=== PATIENT | female | born 1985 | race Caucasian/White ===

== ENCOUNTER → 2016-08-02 | Outpatient (CLI) | payer OTHER ==
[~2016-08-02] MED LIST: ASPI-390 PO; CALC500C70 PO; GADAVIST IV PRN; IUD'IUD; KETO10TA PO; MULT-506 PO; ONDA4TAB46 PO; TRAZ50TA35 PO
--- NOTE | 2016-08-02 09:06 | DIAGNOSTIC IMAGING REPORT ---
MRI OF THE BRAIN COMBO CLINICAL HISTORY: Headache. COMPARISON STUDY: No priors. TECHNIQUE: MRI of the brain was performed utilizing various T1 and T2-weighted sequences in the axial, sagittal, and coronal planes. Contrast-enhanced sequences were acquired following the administration of 5.5 cc of Gadavist. FINDINGS: Brain parenchyma: There is diffuse nonspecific pachymeningeal enhancement identified. No left or meningeal enhancement is seen. There is no hemorrhage or mass effect. There is no restricted diffusion to suggest acute ischemia. No enhancing mass lesion is identified on the postcontrast images. Hua-white matter differentiation is preserved. No extra-axial fluid collection is seen. There is cerebellar tonsillar ectopia. The cerebellar tonsils project 9 mm below the foramen magnum. Ventricles, sulci, and cisterns: Normal in configuration. Pituitary and sella: There is nonspecific prominence of the pituitary gland, likely normal for age and gender. Intracranial vasculature: Normal flow voids are maintained at the skull base. Orbits: The bony orbits are grossly intact. Orbital contents are normal in appearance. Sinuses and mastoids: There is trace mucosal thickening in the right maxillary antrum. A 1.7 cm T1 and T2 hyperintense nonenhancing lobulated structure in the left sphenoid sinus is typical for a mucocele. The remaining paranasal sinuses and the mastoid air cells are clear. Calvarium: Unremarkable. Cervical cord: Partially visualized cervical spinal cord is normal in morphology and signal intensity. IMPRESSION: 1. There is no hemorrhage, mass effect, or evidence of acute ischemia. 2. There is diffuse nonspecific pachymeningeal enhancement. This carries a broad differential, with top considerations including intracranial hypotension or infection. Less likely considerations include metastatic disease or neurosarcoidosis. Intracranial hypotension is favored due to the concurrent findings of cerebellar tonsillar ectopia and mild pituitary gland enlargement. Clinical correlation will be essential. Electronically signed by: Sagar Molina M.D. 08/02/2016 9:04 AM Dictated Date/Time: 08/02/2016 8:50 AM
== END | disposition home or self-care (01) ==
LOC: C.MRI 07:36
PROVIDERS: ATTEND Family Medicine
DX: R51 Headache (principal)

== ENCOUNTER → 2016-08-08 | Outpatient (CLI) | payer OTHER ==
--- NOTE | 2016-08-08 20:18 | DIAGNOSTIC IMAGING REPORT ---
MRI CERVICAL SPINE COMBO CLINICAL HISTORY: Postural headache. Possible intracranial hypotension. TECHNIQUE: Sagittal and axial T1, T2 and STIR images were obtained. Imaging was performed before and after administration of 5.1 cc of intravenous Gadavist. COMPARISON STUDY: No previous studies for comparison. There are low-lying cerebellar tonsils There are no suspicious areas of marrow replacement. No intrinsic cervical cord lesions are visualized. C2-3: There is no evidence of disc bulge or focal herniation. There is no spinal or foraminal stenosis. C3-4: There is no evidence of disc bulge or focal herniation. There is no spinal or foraminal stenosis. C4-5: There are no disc bulges or focal herniations. There is no spinal or foraminal stenosis. C5-6 :There is a tiny right paracentral disc protrusion. There is no spinal or foraminal stenosis. C6-7: There is no evidence of disc bulge or focal herniation. There is no evidence of spinal or foraminal stenosis. C7-T1: There is no evidence of disc bulge or focal herniation. There is no evidence of spinal or foraminal stenosis. There is equivocal mild dilatation of the left C8 nerve root sleeve. There is no pathologic enhancement. IMPRESSION: 1. Tiny right paracentral disc protrusion at the C5-6 level 2. Equivocal mild dilatation of the left C8 nerve root sleeve 3. Low-lying cerebellar tonsils Electronically signed by: Lemuel King M.D. 08/08/2016 8:16 PM Dictated Date/Time: 08/08/2016 8:06 PM
--- NOTE | 2016-08-08 20:27 | DIAGNOSTIC IMAGING REPORT ---
THORACIC SPINE COMBO CLINICAL HISTORY: POSTURAL SMITH, ABNORMAL BRAIN MRI possible intracranial hypotension. Evaluate for CSF leak. COMPARISON STUDY: No previous studies for comparison. FINDINGS: Imaging was performed in the sagittal axial and coronal planes. Imaging was performed before and after administration of 5.1 cc of intravenous Gadavist. No spinal cord abnormalities are visualized. There are no suspicious areas of marrow replacement. No disc herniations are visualized. There is no evidence of spinal stenosis. No pseudomeningoceles are visualized. There are no pathologically enhancing lesions. The spleen is top normal in size. IMPRESSION: Normal study Electronically signed by: Lemuel King M.D. 08/08/2016 8:25 PM Dictated Date/Time: 08/08/2016 8:23 PM
--- NOTE | 2016-08-08 20:31 | DIAGNOSTIC IMAGING REPORT ---
MRI LUMBAR SPINE COMBINATION CLINICAL HISTORY: POSTURAL SMITH, ABNORMAL BRAIN MRI POSSIBLE CSF LEAK. INTRACRANIAL HYPOTENSION. TECHNIQUE: Sagittal and axial T1, T2 and STIR images were obtained. Imaging was performed before and after administration of 5.1 cc of intravenous Gadavist. COMPARISON STUDY: No previous studies for comparison. OBSERVATIONS: The vertebral bodies and posterior elements appear intact. There is no abnormal bony signal present to suggest a marrow replacement process. L1-2: No disc protrusions or extrusions. No evidence of spinal canal or neural foraminal compromise. L2-3: No disc protrusions or extrusions. No evidence of spinal canal or neural foraminal compromise. L3-4: No disc protrusions or extrusions. No evidence of spinal canal or neural foraminal compromise. L4-5: No disc protrusions or extrusions. No evidence of spinal canal or neural foraminal compromise. L5-S1: No disc protrusions or extrusions. No evidence of spinal canal or neural foraminal compromise. The conus medullaris and cauda equina appear normal. No pseudomeningoceles are visualized. There are no pathologically enhancing lesions IMPRESSION: Normal study. Electronically signed by: Lemuel King M.D. 08/08/2016 8:29 PM Dictated Date/Time: 08/08/2016 8:25 PM
== END | disposition home or self-care (01) ==
LOC: C.MRI 17:27
PROVIDERS: ATTEND Family Medicine
DX: M50.20 Other cervical disc displacement, unspecified cervical region (principal); R51 Headache; R90.89 Other abnormal findings on diagnostic imaging of central nervous system

== ENCOUNTER → 2016-09-04 | Outpatient (CLI) | payer OTHER ==
[~2016-09-04] MED LIST changes: -GADAVIST IV PRN
== END | disposition home or self-care (01) ==
LOC: C.LAB 07:30
PROVIDERS: ATTEND Psychiatry & Neurology Neurology
DX: G93.89 Other specified disorders of brain (principal)

== ENCOUNTER 2016-11-13 13:17 | Emergency (ER) | payer OTHER ==
[~2016-11-13] VITALS: Ht 160 cm; Wt 52.3 kg
[~2016-11-13 13:17] MED LIST changes: -KETO10TA PO
[2016-11-13 13:20] VITALS: TEMP 36.6; Ht 160 cm; Wt 52.3 kg
[2016-11-13] MEDS ORDERED: SODIUM CHLORIDE 0.9% 1000ML 1,000 ML IV STA (14:05)
[2016-11-13] MEDS ORDERED: KETOROLAC TROMETHAMINE 30 MG/ML VIAL IV STA (14:05)
[2016-11-13 14:29] LABS: BASO % 0.6 %; BASO ABS # 0.05 K/uL (0-0.2); COMPLETE YES; EOS % 1.1 %; HEMATOCRIT 41.2 % (37-47); IG% 0.1 %; MEAN CELL VOLUME 90.7 fL (80-100); MEAN CORPUSCULAR HEMOGLOBIN 31.3 pg (25-34); MEAN CORPUSCULAR HGB CONC 34.5 g/dl (32-36); MEAN PLATELET VOLUME 10.2 fL (7.4-10.4); MONO % 5.5 %; NEUT % 64.7 %; PLATELET COUNT 250 K/uL (130-400); RED BLOOD COUNT 4.54 M/uL (4.2-5.4); WHITE BLOOD COUNT 7.86 K/uL (4.8-10.8)
[2016-11-13 14:42] LABS: PARTIAL THROMBOPLASTIN RATIO 1.1; PROTHROMBIN TIME (PATIENT) 10.6 SECONDS (9.0-12.0)
[2016-11-13 14:53] LABS: PREG INTERNAL POSITIVE QC POS CONTROL LINE
[2016-11-13 14:54] LABS: PREG INTERNAL NEGATIVE QC NEG CLEAR BACKGROUND
[2016-11-13 14:55] LABS: BUN/CREATININE RATIO 9.7 (10-20); CALCIUM 9.4 mg/dl (8.5-10.1); CREATININE 0.93 mg/dl (0.60-1.20); POTASSIUM 3.6 mmol/L (3.5-5.1)
[2016-11-13 14:58] LABS: ALB/GLOB RATIO 1.2 (0.9-2)
[2016-11-13 15:00] VITALS: BP 130/75; PULSE 62; O2SAT 98
--- NOTE | 2016-11-13 15:47 | DIAGNOSTIC IMAGING REPORT ---
HEAD WITHOUT CONTRAST (CT) HISTORY: T10 BLOOD PATCH, INCREASED HEADACHES. Diffuse pachymeningeal enhancement was seen on comparison study. TECHNIQUE: Multiple axial CT images of the head were obtained without contrast. CT DOSE: 537.48 mGy.cm COMPARISON: Brain MRI 08/02/2016. FINDINGS: No acute intracranial hemorrhage, midline shift, mass, large territorial ischemia or abnormal extra-axial collection. Note is made of partially imaged cerebellar tonsillar ectopia. The calvarium is intact. There is a 1.8 x 1.0 cm ovoid low attenuating lesion along the left sphenoid sinus which may reflect an accessory opacified sphenoid air cell. No associated aggressive features are identified. This appears unchanged from comparison. IMPRESSION: No acute intracranial abnormality. 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 The above report was generated using voice recognition software. It may contain grammatical, syntax or spelling errors. Electronically signed by: Arthur Goncalves M.D. 11/13/2016 3:46 PM Dictated Date/Time: 11/13/2016 3:43 PM
[2016-11-13] MEDS ORDERED: KETO10TA PO (16:04)
--- NOTE | 2016-11-13 16:04 | EMERGENCY ROOM VISIT NOTE ---
ED Visit Note First contact with patient: 13:46 CHIEF COMPLAINT: Headache 2 days after blood patch HISTORY OF PRESENT ILLNESS: Patient is a healthy 31-year-old white female who presents to emergency department accompanied by her significant other for evaluation of a headache 2 days after a blood patch. Patient was in her usual state of health until May of this year when she had the fairly abrupt onset of positional headaches. She was evaluated by neurology and pain management, and thoroughly evaluated with multiple diagnostic imaging studies including CTs and MRIs. MRI demonstrated intracranial hypotension. She was referred to pain management for a blood patch and had her first blood patch in September of this year performed by pain management in [place]. It helped her for roughly 2 weeks. Her symptoms subsequently returned. She was then referred to neurosurgery in [place]. She recently had a CT myelogram which localized the leak to the T10 area. She subsequently underwent a second blood patch performed 2 days ago, performed by pain management in [place]. Since the second blood patch, the patient has begun to experience a different headache phenomenon. She feels an intense, throbbing, frontal and temporal pressure with associated nausea and anorexia. She has been checking her temperature and has not had a fever. She has not had any signs of meningitis. She states that her typical headaches were more occipital in nature and were positional. She has tried ibuprofen, Excedrin, Tylenol, increasing her fluid in caffeine intake, ice and cool compresses on position changes. She has Zofran at home which she took prior to arrival. She did contact pain management who performed the above patch and they recommended that she come to the emergency department for a CAT scan to evaluate for an intracranial bleed. They apparently used an increased volume of blood for the blood patch this time. She admits to photophobia, and feeling a little bit off balance. She rates her discomfort a 7/10. REVIEW OF SYSTEMS: Review of systems as per HPI. All other systems reviewed were negative. 10 systems reviewed. PMH: Electronic medical records are reviewed and summarized as above/below. See Problem List. SOCIAL HISTORY: Patient lives at home with her boyfriend. Nonsmoker, denies alcohol use. She is employed as a nurse at our facility. PHYSICAL EXAM: Vital Signs: Reviewed Nurse's notes. CONSTITUTIONAL: Patient is a pleasant, well-appearing 31-year-old white female who is awake and alert and in no acute distress. HEENT: Normocephalic, atraumatic. Pupils equal, round, reactive to light and accommodation. EOMs intact without nystagmus. Sclera are anicteric. Tympanic membranes intact, with normal landmarks. External canals are clear. Oral and nasopharynx are clear. No CSF rhinorrhea. Mucous membranes are moist. NECK: Supple, nontender, no lymphadenopathy. Full range of motion. HEART: Regular rate and rhythm, with normal S1 and S2, no murmur or gallop or rub is heard. LUNGS: Breath sounds equal and clear to auscultation without wheezes, rales, or rhonchi heard. SKIN: No lesions or rash, normal skin turgor. EXTREMITIES: No cyanosis, edema, joint tenderness or swelling. No deformity. NEUROLOGICAL: Alert and oriented x4. Cranial nerves 2 through 12, sensation and strength grossly intact. Gait is normal. Patient is able to tandem walk without difficulty. Negative Romberg, and pronator drift. Finger to nose within normal limits. Mini-Mental status exam is unremarkable. EMERGENCY DEPARTMENT COURSE: The patient was seen and assessed as above. Old records are reviewed. She was referred to the emergency department for evaluation and for a CT scan after having a recent blood patch. Treatment options were discussed with her. She requested Toradol. She was agreeable to IV fluids. She was given a liter over one hour and Toradol 30 mg IV. Blood work was performed. Head CT was obtained. Laboratory studies were largely unremarkable. There was no leukocytosis. H&H is normal. Coags are unremarkable. Electrolytes and liver functions are within normal limits. Urine dip was clear, and test was negative. Head CT did not demonstrate any acute intracranial abnormality. The patient was reassessed after CAT scan. She did report good relief of her headache with the IV fluids and Toradol. All laboratory and diagnostic imaging studies were reviewed with her at length. She reports that pain management told her if her CAT scan was negative, she would have to "wait it out." She was agreeable to a prescription for oral Toradol which was provided. She has Zofran at home. She was advised to follow-up with her pain management group by telephone to notify them of the outcome of her ED visit. The patient rated her headache a 0/10 at discharge. Differential includes: acute intracranial bleed, meningitis, encephalitis, mass or mass effect, sinusitis, infection, migraine, tumor, headache, temporal arteritis and carbon monoxide exposure. Medication reconciliation: I attest that I have personally reviewed the patient' s current medication list. HEAD WITHOUT CONTRAST (CT) HISTORY: T10 BLOOD PATCH, INCREASED HEADACHES. Diffuse pachymeningeal enhancement was seen on comparison study. TECHNIQUE: Multiple axial CT images of the head were obtained without contrast. CT DOSE: 537.48 mGy.cm COMPARISON: Brain MRI 08/02/2016. FINDINGS: No acute intracranial hemorrhage, midline shift, mass, large territorial ischemia or abnormal extra-axial collection. Note is made of partially imaged cerebellar tonsillar ectopia. The calvarium is intact. There is a 1.8 x 1.0 cm ovoid low attenuating lesion along the left sphenoid sinus which may reflect an accessory opacified sphenoid air cell. No associated aggressive features are identified. This appears unchanged from comparison. IMPRESSION: No acute intracranial abnormality. 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 Problem List Medical Problems: (1) CSF leak Status: Chronic (2) Headache Status: Chronic Current/Historical Medications Scheduled Calcium/Vitamin D (Os-Amadeo 500 Plus D), 1 TAB PO DAILY Multivitamin (Multivitamin), 1 TAB PO DAILY Trazodone Hcl (Trazodone), 25-50 MG PO HS Scheduled PRN Zaurxvq-Qaiddfdpppmzy-Uppjjbdz (Excedrin Migraine), 1 TAB PO BID PRN for Pain Ketorolac (Toradol), 10 MG PO Q6 PRN for Pain Ondansetron Hcl (Zofran), 4 MG PO Q6 PRN for Nausea Miscellaneous Medications Iud's (Paragard Intrauterine Aquatic Laborer) Allergies Coded Allergies: Amoxicillin (Unverified Allergy, Unknown, hives, 11/13/16) Vital Signs Date Time Temp Pulse Resp B/P (MAP) Pulse Ox O2 Delivery O2 Flow Rate FiO2 11/13/16 15:00 62 16 130/75 98 Room Air 11/13/16 13:20 36.6 64 18 128/80 100 Room Air Laboratory Results 11/13/16 14:15 Red Blood Count 4.54, Mean Corpuscular Volume 90.7, Mean Corpuscular Hemoglobin 31.3, Mean Corpuscular Hemoglobin Concent 34.5, Mean Platelet Volume 10.2, Neutrophils (%) (Auto) 64.7, Lymphocytes (%) (Auto) 28.0, Monocytes (%) (Auto) 5.5, Eosinophils (%) (Auto) 1.1, Basophils (%) (Auto) 0.6, Neutrophils # (Auto) 5.08, Lymphocytes # (Auto) 2.20, Monocytes # (Auto) 0.43, Eosinophils # (Auto) 0.09, Basophils # (Auto) 0.05 11/13/16 14:15 Test 11/13/16 14:15 White Blood Count 7.86 K/uL (4.8-10.8) Red Blood Count 4.54 M/uL (4.2-5.4) Hemoglobin 14.2 g/dL (12.0-16.0) Hematocrit 41.2 % (37-47) Mean Corpuscular Volume 90.7 fL (80-100) Mean Corpuscular Hemoglobin 31.3 pg (25-34) Mean Corpuscular Hemoglobin Concent 34.5 g/dl (32-36) Platelet Count 250 K/uL (130-400) Mean Platelet Volume 10.2 fL (7.4-10.4) Neutrophils (%) (Auto) 64.7 % Lymphocytes (%) (Auto) 28.0 % Monocytes (%) (Auto) 5.5 % Eosinophils (%) (Auto) 1.1 % Basophils (%) (Auto) 0.6 % Neutrophils # (Auto) 5.08 K/uL (1.4-6.5) Lymphocytes # (Auto) 2.20 K/uL (1.2-3.4) Monocytes # (Auto) 0.43 K/uL (0.11-0.59) Eosinophils # (Auto) 0.09 K/uL (0-0.5) Basophils # (Auto) 0.05 K/uL (0-0.2) RDW Standard Deviation 42.1 fL (36.4-46.3) RDW Coefficient of Variation 12.6 % (11.5-14.5) Immature Granulocyte % (Auto) 0.1 % Immature Granulocyte # (Auto) 0.01 K/uL (0.00-0.02) Prothrombin Time 10.6 SECONDS (9.0-12.0) Prothromb Time International Ratio 1.0 (0.9-1.1) Activated Partial Thromboplast Time 28.0 SECONDS (21.0-31.0) Partial Thromboplastin Ratio 1.1 Anion Gap 8.0 mmol/L (3-11) Est Creatinine Clear Calc Drug Dose 73.7 ml/min Estimated GFR () 96.3 Estimated GFR (Non- 83.1 BUN/Creatinine Ratio 9.7 (10-20) Calcium Level 9.4 mg/dl (8.5-10.1) Total Bilirubin 0.4 mg/dl (0.2-1) Aspartate Amino Transf (AST/SGOT) 12 U/L (15-37) Alanine Aminotransferase (ALT/SGPT) 21 U/L (12-78) Alkaline Phosphatase 75 U/L (45-117) Total Protein 7.5 gm/dl (6.4-8.2) Albumin 4.1 gm/dl (3.4-5.0) Globulin 3.4 gm/dl (2.5-4.0) Albumin/Globulin Ratio 1.2 (0.9-2) Human Chorionic Gonadotropin, Qual NEG (NEG) Medications Administered Medications (Trade) Dose Ordered Sig/Tamar Route Start Time Stop Time Status Last Admin Dose Admin Sodium Chloride 1,000 ml @ 999 mls/hr Q1H1M STAT IV 11/13/16 14:05 11/13/16 15:05 DC 11/13/16 14:24 999 MLS/HR Ketorolac Tromethamine (Toradol Inj) 30 mg NOW STAT IV 11/13/16 14:05 11/13/16 14:08 DC 11/13/16 14:25 30 MG Departure Information Impression Primary Impression: Headache Prescriptions Ketorolac (Toradol) 10 Mg Tab 10 MG PO Q6 Y for Pain, #20 TAB Prov: Yelena Mckinney PA 11/13/16 Referrals Veronica Mcmillan M.D. (MEDICAL) (PCP) Patient Instructions My [facility] [employer] Additional Instructions Toradol 10 mg: Take one tablet every 6 hours as needed for pain. Do not exceed more than 40 mg per day. Rest today in a quiet, peaceful, dark environment and get a full 8-10 hrs of sleep tonight. Avoid loud noises, smoke/smoking, alcohol, bright lights, stress, or physical exertion today to minimize the chance the headache may return. Continue current medications. Return to the ER for passing out, worsening headache, vision problems, neck stiffness/pain, fevers, vomiting, worsening of your condition, or as needed. Follow up with your primary physician in 2-3 days for a recheck of your current condition.
== END 2016-11-13 16:23 | disposition home or self-care (01) ==
LOC: C.EDB 13:18
DX: R51 Headache (principal); G96.0 Cerebrospinal fluid leak

== ENCOUNTER 2017-08-24 21:56 | Emergency (ER) | payer OTHER ==
[~2017-08-24] VITALS: Ht 160 cm; Wt 55.1 kg
[2017-08-24 21:59] VITALS: BP 138/91; TEMP 36.7; Ht 160 cm; Wt 55.1 kg
--- NOTE | 2017-08-24 22:46 | EMERGENCY ROOM VISIT NOTE ---
History First contact with patient: 22:04 Chief Complaint: OTHER COMPLAINT Stated Complaint: EXPOSURE-WC History of Present Illness The patient is a 32 year old female who presents to the Emergency Room with complaints of a potential blood exposure. 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 A patient had and they were removing the lines. She states that she was removing a femoral A-line and the saline spray to her in the face. She does not believe there was any blood in the saline. She does not think that she got any of the fluid into her eyes or mouth. She does report that the source patient was a known IV drug user. The source patient's HIV/hepatitis status is unknown. The patient reports that she has had her hepatitis B vaccination. Her tetanus is up-to-date. She denies any complaints at this time. Review of Systems A complete 6 point review of systems was reviewed with the patient with pertinent positives and negatives as per history of present illness. All else were negative. Past Medical/Surgical History Medical Problems: (1) CSF leak (2) Headache Social History Smoking Status: Never Smoker Occupation Status: employed Current/Historical Medications Scheduled Calcium/Vitamin D (Os-Amadeo 500 Plus D), 1 TAB PO DAILY Multivitamin (Multivitamin), 1 TAB PO DAILY Trazodone Hcl (Trazodone), 25-50 MG PO HS Scheduled PRN Qdxkwai-Wlivgwigkdfbn-Zueupxdc (Excedrin Migraine), 1 TAB PO BID PRN for Pain Ondansetron Hcl (Zofran), 4 MG PO Q6 PRN for Nausea Miscellaneous Medications Iud's (Paragard Intrauterine File Conversion Operator) Physical Exam Vital Signs Date Time Temp Pulse Resp B/P (MAP) Pulse Ox O2 Delivery O2 Flow Rate FiO2 08/24/17 22:50 79 17 99 08/24/17 21:59 36.7 77 16 138/91 98 Room Air Physical Exam VITALS: Vitals are noted on the nurse's note and reviewed by myself. Vital signs stable. GENERAL: This is a 32-year-old female, in no acute distress, nondiaphoretic, well-developed well-nourished. SKIN: No rashes noted. HEENT: Normocephalic. PERRLA. EOMI. Mucous membranes moist. NEURO: Patient was alert and oriented to person place and time. Medical Decision & Procedures Medical Decision The patient was evaluated as above. She was exposed to saline and possibly blood from an IV drug user. Consent was obtained to test the patient's baseline HIV and hepatitis status. The blood exposure labs were drawn. Benefits/risks of post exposure prophylaxis were discussed with the patient; she declined at this time. The ER clinical technical supervisor was able to contact the ICU clinical technical supervisor and they will arrange for testing of the source patient. [facility] was contacted. They will follow-up with the patient. The patient verbalized her understanding of my assessment and treatment plan was discharged home in good condition. Medication Reconcilliation Current Medication List: was personally reviewed by ok Blood Pressure Screening Patient's blood pressure: Normal blood pressure Impression Primary Impression: Exposure to blood or body fluid Departure Information Dispostion Home / Self-Care Condition GOOD Referrals Veronica Mcmillan M.D. (MEDICAL) (PCP) Tess Levi Patient Instructions My [facility] Additional Instructions Follow-up with [facility] for any further instructions.
[2017-08-24 22:50] VITALS: PULSE 79; O2SAT 99
== END 2017-08-24 22:51 | disposition home or self-care (01) ==
LOC: C.EDB 21:57 → C.EDC 22:51
DX: Z77.21 Contact with and (suspected) exposure to potentially hazardous body fluids (principal); Y99.0 Civilian activity done for income or pay